=== PATIENT | male | born 2000 | race Hispanic/Latino ===

== ENCOUNTER 2023-07-09 22:42 | Emergency (ER) | payer SELFPAY ==
[2023-07-09] MEDS ORDERED: Lidocaine/Transparent Dressing 1 EACH KIT ONE (23:46)
[2023-07-09] MEDS ORDERED: Boostrix 0.5 ML (Tdap) VIAL (>/=7 yrs of age) ONE (23:46)
== END 2023-07-10 00:06 | disposition home or self-care (01) ==
LOC: ERS 22:42
DX: S01.511A Laceration without foreign body of lip, initial encounter (principal); S60.419A Abrasion of unspecified finger, initial encounter; V18.0XXA Pedal cycle driver injured in noncollision transport accident in nontraffic accident, initial encounter; Z23 Encounter for immunization
CPT/HCPCS: 90471; 90715

== ENCOUNTER 2023-12-03 09:57 | Emergency (ER) | payer SELFPAY ==
[2023-12-03] MEDS ORDERED: Ketorolac Tromethamine 30 MG (1 mL) VIAL ONE (10:10)
[2023-12-03 10:23] LABS: #Basophils Less than 0.03 10x3/uL (0.0-0.2); %Basophils 0.2 % (0.0-1.0); %Eosinophils 4.6 % (0.0-10.0); %Lymphocytes 37.7 % (21.0-51.0); %Monocytes 7.2 % (0.0-10.0); %Neutrophils 50.1 % (42.0-75.0); Hematocrit 44.5 % (42.0-52.0); Hemoglobin 14.6 g/dL (14.0-18.0); Mean Corpuscular HGB CONC 32.8 g/dL (32.0-36.0); Mean Corpuscular Hemoglobin 30.1 pg (27.0-31.0); Mean Corpuscular Volume 91.8 fL (78.0-98.0); Mean Platelet Volume 8.8 fL (7.4-10.4); Platelet Count 310 10x3/uL (130-400); RBC Distribution Width 13.1 % (11.5-14.5); Red Blood Cell (RBC) Count 4.85 mill/uL (4.70-6.10)
[2023-12-03 10:37] LABS: ALT (SGPT) 14 U/L (8-55); AST (SGOT) 17 U/L (5-34); Albumin 4.4 g/dL (3.5-5.0); Alkaline Phosphatase 60 U/L (40-110); Anion Gap 14 mmol/L (10-20); BUN (Urea Nitrogen) 7 mg/dL (8.9-20.6); Bilirubin, Total 0.9 mg/dL (0.2-1.2); Calc. Creatinine Clearance 0 mL/min (70-130); Calcium 9.4 mg/dL (7.8-10.44); Carbon Dioxide 22 mmol/L (22-29); Chloride 110 mmol/L (98-107); Estimated GFR 126; Globulin 2.8 g/dL (2.4-3.5); Glucose 148 mg/dL (70-105); Potassium 3.5 mmol/L (3.5-5.1); Protein, Total 7.2 g/dL (6.0-8.3); Sodium 142 mmol/L (136-145)
[2023-12-03] MEDS ORDERED: Boostrix 0.5 ML (Tdap) VIAL (>/=7 yrs of age) ONE (10:40)
[2023-12-03] MEDS ORDERED: Lidocaine 1% w/Epinephrine 1:100K 20 ML VIAL ONE (11:10)
[2023-12-03] MEDS ORDERED: Ondansetron PF 4 MG/2 ML Vial ONE (12:12)
== END 2023-12-03 13:16 | disposition home or self-care (01) ==
LOC: ERS 09:57
DX: S01.81XA Laceration without foreign body of other part of head, initial encounter (principal); S30.0XXA Contusion of lower back and pelvis, initial encounter; M54.2 Cervicalgia; V23.49XA Other motorcycle driver injured in collision with car, pick-up truck or van in traffic accident, initial encounter
CPT/HCPCS: 12052; 70450; 71260; 72125; 74177; 80053; 85025; 90471; 90715; 96361; 96374; 96375; G0390; J1885; J2405